=== PATIENT | male | born 1945 | race Two or more races ===

== ENCOUNTER 2017-09-19 13:12 | Emergency (ER) | payer MEDICARE ==
[~2017-09-19] VITALS: Ht 157.5 cm; Wt 80.7 kg
[2017-09-19] MEDS ORDERED: MORPHINE SULFATE 2 MG/ML SYR IV STA (14:05)
[2017-09-19] MEDS ORDERED: ONDANSETRON HCL INJ 2 MG/ML VIAL IV STA (14:05)
[2017-09-19] MEDS ORDERED: SODIUM CHLORIDE 0.9% 1000ML 1,000 ML IV STA (14:05)
[2017-09-19 15:37] VITALS: BP 107/56
== END 2017-09-19 15:40 | disposition home or self-care (01) ==
LOC: FSED 13:12
DX: R11.2 Nausea with vomiting, unspecified (principal); R19.7 Diarrhea, unspecified; A08.4 Viral intestinal infection, unspecified; I10 Essential (primary) hypertension; E11.9 Type 2 diabetes mellitus without complications; E03.9 Hypothyroidism, unspecified
CPT/HCPCS: 80048; 80076; 81003; 84484; 85025; 99284; J2270; J2405; J7030

== ENCOUNTER 2018-09-25 14:29 | Emergency (ER) | payer MEDICARE, OTHER ==
[~2018-09-25] VITALS: Ht 157.5 cm; Wt 80.7 kg
[2018-09-25] MEDS ORDERED: SODIUM CHLORIDE 0.9% 1000ML 1,000 ML IV SCH (14:45)
--- NOTE | 2018-09-25 15:17 | Diagnostic Imaging Report ---
EXAMINATION: PA and lateral views of the chest. COMPARISON: None CLINICAL HISTORY: Weakness, shortness of breath DISCUSSION: The lungs are well-inflated and without focal consolidation, pleural effusion, or pneumothorax. Mild enlargement of the cardiac silhouette without overt pulmonary edema. Tortuous thoracic aorta. No acute osseous abnormalities. Multilevel degenerative disc changes of the thoracic spine. IMPRESSION: Mild enlargement of the cardiac silhouette without vascular decompensation. Signed by: Dr. Elia Avalso M.D. on 09/25/2018 3:13 PM
--- NOTE | 2018-09-25 15:30 | NUR ---
PT TO BE TRANSFERED TO [facility] AND FAMILY AWARE OF POC
--- NOTE | 2018-09-25 15:52 | NUR ---
[facility] CALLED FOR TRANSPORT DUE TO PATIENTS INSURANCE AND REQUEST ETA 45 MIN
--- NOTE | 2018-09-25 16:18 | NUR ---
REPORT TO ELY MUELLER AT [facility] ALL QUESTIONS ANSWERED
[2018-09-25 16:51] VITALS: BP 142/67
== END 2018-09-25 17:20 | disposition other institution (70) ==
LOC: FSED 14:29
DX: R53.1 Weakness (principal); G70.01 Myasthenia gravis with (acute) exacerbation
CPT/HCPCS: 71046; 80053; 81003; 84484; 85025; 93005; 99284